=== PATIENT | female | born 1985 | race African-American/Black ===

== ENCOUNTER 2017-09-19 20:49 | Emergency (ER) | payer SELFPAY | END 2017-09-19 21:38 | disposition home or self-care (01) | LOC: SCSER 20:49 | DX: M54.2 Cervicalgia (principal); M54.6 Pain in thoracic spine; J45.909 Unspecified asthma, uncomplicated | CPT/HCPCS: 99282 ==

== ENCOUNTER 2018-12-12 14:12 | Emergency (ER) | payer SELFPAY | END 2018-12-12 14:52 | disposition home or self-care (01) | LOC: SCSER 14:12 | DX: G50.0 Trigeminal neuralgia (principal); J45.909 Unspecified asthma, uncomplicated | CPT/HCPCS: 99283 ==